=== PATIENT | male | born 1940 | race African-American/Black ===

== ENCOUNTER 2016-09-22 16:34 | Inpatient (IN) | payer OTHER ==
[~2016-09-22] VITALS: Ht 180.3 cm; Wt 88.0 kg
[~2016-09-22 16:34] MED LIST: APRESOLINE50 MG PO; ASPIRIN325 MG PO; ASPIRIN81 M1 PO; Aspirin E.C. PO; COMBIGAN O20 DROP/5 BOTH EYES; COZAAR100 MG; COZAAR100 MG PO; CRESTOR20 MG; CRESTOR20 MG PO; Combigan Ophth Soln BOTH EYES; Cozaar PO; DIAMOX SEQUELS500 MG PO; GLIPIZIDE; GLIPIZIDE10 MG; GLIPIZIDE10 MG PO; GLIPIZIDE5 MG PO; GLUCOTROL5 MG PO; HYDROCHLOROTHIA25 MG PO; JANUMET; JANUMET 50/51 TABLET; JANUMET 50/51 TABLET PO; LANTUS 10100 UNITS/ SC; LANTUS 3 M100 UNITS/ SC; LANTUS 3 M100 UNITS1 SC; LEVEMIR100 UNIT/2; LEVEMIR100 UNIT/2 SC; LEVETIRACETAM500 MG PO; LIPITOR20 MG PO; LISINOPRIL20 MG PO; LO-DOSE ASPIRIN81 M1 PO; LOSARTAN POTAS100 MG PO; LUMIGAN 0.50 DROP/2. BOTH EYES; LUMIGAN 0.50 DROP/22 BOTH EYES; Lipitor PO; Lovenox SC; Lumigan 0.01% Ophth BOTH EYES; METOPROLOL SUC100 MG PO; METOPROLOL SUCC50 MG PO; NITROGLYCERIN0.4 MG SL; NOVOLOG PE100 UNITS/ SC; PRILOSEC OTC20 MG PO; Pred Forte 1%,Omnipr LEFT EYE; Protonix PO; REGLAN10 MG/10 M PO; TOPROL XL100 MG PO; TYLENOL REGULA325 MG PO; Toprol XL PO; ZETIA10 MG PO; ZYRTEC10 M3 PO; ZyPREXA IM; ZyPREXA PO; [UNRECOGNIZED DRUG - REMARK]; [UNRECOGNIZED DRUG - REMARK]
[2016-09-22 17:06] LABS: BASOPHIL COUNT 0.1 K/uL (0-0.1); EOSINOPHIL (%) 2.4 % (0-5); EOSINOPHIL COUNT 0.2 K/uL (0-0.3); IMMATURE GRANULOCYTE (%) 0.3 % (0.0-0.7); INSTRUMENT ABS NEUTROPHIL CT 3.9 K/uL; MCH 29.5 PG (29.0-34.0); MCHC 31.9 G/DL (30.0-36.0); MCV 92.3 FL (86-99); MEAN PLAT.VOLUME 10.5 uM^3 (9.0-12.4); MONOCYTE (%) 5.9 % (3-12); MONOCYTE COUNT 0.5 K/uL (0-0.8); NEUTROPHIL (%) 50.8 % (45-76); NEUTROPHIL COUNT 3.9 K/uL (1.8-6.4); PLATELET COUNT 153 K/uL (156-360); RBC DIS.WIDTH-CV 12.8 % (11.8-14.6); RBC DIS.WIDTH-SD 43.5 % (39-53); RED BLOOD COUNT 5.09 M/uL (4.00-5.50); WHITE BLOOD COUNT 7.6 K/uL (4.1-10.2)
[2016-09-22 17:09] LABS: POINT-OF-CARE METER ID UU13113702
[2016-09-22 17:16] LABS: INTER. NORMALIZED RATIO 1.1; PROTHROMBIN TIME 11.4 (9.2-11.2)
[2016-09-22 17:29] LABS: PTT 19.7 (25-32)
[2016-09-22 17:35] LABS: AMYLASE 114 IU/L (1-118); CHLORIDE 105 mEq/L (99-109); POTASSIUM 4.5 mEq/L (3.7-5.4); SODIUM 140 mEq/L (136-147)
[2016-09-22 17:37] LABS: GLUCOSE 160 mg/dL (70-99)
[2016-09-22 17:38] LABS: ANION GAP 11 MEQ/L (2-14)
[2016-09-22 17:40] LABS: SERUM ETHYL ALCOHOL < 10 mg/dL
[2016-09-22 17:41] LABS: GFR ESTIMATE (CALCULATED) 55 mL/min/
[2016-09-22 17:42] LABS: UREA NITROGEN (BUN) 23 mg/dL (9-23)
[2016-09-22 17:44] LABS: LIPASE 32 U/L (1.0-51.0)
[2016-09-22 17:45] LABS: TROP-I INTERPRETATION NEGATIVE; TROPONIN-I < 0.01 ng/mL (0.0-0.30)
[2016-09-22] MEDS ORDERED: QUETIAPINE FUMA25 MG PO (17:46)
[2016-09-22 20:27] LABS: ADD MIUA? YES; BILIRUBIN NEGATIVE; BLOOD MODERATE; COLOR YELLOW ((YELLOW)); GLUCOSE (STRIP) NEGATIVE; KETONES NEGATIVE; LEUKOCYTES NEGATIVE; NITRITE NEGATIVE; PROTEIN (STRIP) 30; SPECIFIC GRAVITY 1.013 (1.000-1.030); UROBILINOGEN 0.2 MG/DL (0.2-1.0)
[2016-09-22 20:42] LABS: ADD MEDTOX COMMENT Y; AMPHETAMINE NEGATIVE (500 ng/mL); BARBITURATES NEGATIVE (200 ng/mL); BENZODIAZEPINES PRESUMPTIVE POSITIVE (150 ng/mL); COCAINE NEGATIVE (150 ng/mL); INTERNAL CONTROLS VALID? YES; METHADONE NEGATIVE (200 ng/mL); METHAMPHETAMINE NEGATIVE (500 ng/mL); OPIATES (MORPHINE) PRESUMPTIVE POSITIVE (100 ng/mL); OXYCODONE NEGATIVE (100 ng/mL); PHENCYCLIDINE NEGATIVE (25 ng/mL); PROPOXYPHENE NEGATIVE (300 ng/mL); THC CANNABINOIDS NEGATIVE (50 ng/mL); TRICYCLIC ANTIDEPRESSANTS NEGATIVE (300 ng/mL)
[2016-09-22 21:11] LABS: BACTERIA NONE SEEN /HPF; EPITHELIAL CELLS RARE /HPF; MUCUS NONE SEEN /LPF; RED BLOOD CELLS 40-50 /HPF (0-5); UCUL ADDED? NO; WHITE BLOOD CELLS 0-5 /HPF (0-5)
[2016-09-22 21:15] LABS: BENZODIAZEPINES QUANT VALUE 0 NG/ML; OPIATES QUANTITATIVE VALUE 0 NG/ML
[2016-09-22 21:23] LABS: BENZODIAZEPINES, URINE SCREEN Negative (200 ng/mL)
[2016-09-22] MEDS ORDERED: LO-DOSE ASPIRIN81 M2 PO (22:02)
[2016-09-23 00:55] LABS: POINT-OF-CARE METER ID UU14188625
[2016-09-23 07:41] LABS: MCH 28.8 PG (29.0-34.0); MCHC 31.7 G/DL (30.0-36.0); MCV 90.9 FL (86-99); MEAN PLAT.VOLUME 10.8 uM^3 (9.0-12.4); PLATELET COUNT 140 K/uL (156-360); RBC DIS.WIDTH-SD 43.2 % (39-53); RED BLOOD COUNT 4.51 M/uL (4.00-5.50); WHITE BLOOD COUNT 6.1 K/uL (4.1-10.2)
[2016-09-23 07:45] LABS: HDL CHOLESTEROL 37 MG/DL (Desirable>=40); LDL CHOLESTEROL 42 mg/dL (Desirable<100); NON-HDL CHOLESTEROL 55 mg/dL (Desirable<160); TOTAL CHOLESTEROL 92 mg/dL (Desirable<200); TRIGLYCERIDES 64 MG/DL (Normal: <150)
[2016-09-23 07:47] LABS: Estimated Average Glucose 146 mg/dL (70-123); HEMOGLOBIN A1c (GLYCOHEMOGLOB) 6.7 % HGB (Below 5.7)
[2016-09-23 08:00] VITALS: BP 173/80
[2016-09-23 11:27] VITALS: BP 143/67
[2016-09-23 11:58] LABS: POINT-OF-CARE METER ID UU14174225
[2016-09-23 15:17] VITALS: BP 132/65
[2016-09-23 16:23] LABS: POINT-OF-CARE METER ID UU14174225
[2016-09-23 19:48] VITALS: BP 116/56
[2016-09-23 21:36] LABS: POINT-OF-CARE METER ID UU14174225
[2016-09-24] VITALS: BP 140/60
[2016-09-24 03:21] VITALS: BP 133/70
[2016-09-24 07:25] VITALS: BP 187/88
[2016-09-24 10:29] VITALS: BP 165/81
[2016-09-24 16:00] VITALS: BP 181/84
[2016-09-24 20:22] VITALS: BP 164/80
[2016-09-25] VITALS: BP 147/80
[2016-09-25 03:50] VITALS: BP 193/95
[2016-09-25 05:50] VITALS: BP 143/72
[2016-09-25 07:14] VITALS: BP 144/72
[2016-09-25 10:34] VITALS: BP 140/60
[2016-09-25 12:08] VITALS: BP 131/78
[2016-09-25] MEDS ORDERED: LEVETIRACETAM750 MG PO (14:06)
== END 2016-09-25 14:55 | disposition home health service (06) | DRG 101 ==
LOC: EME → EDBD 16:34 → EME 16:34 → EDOF 22:48 → 5SOUTH 22:48
PROVIDERS: Emergency Medicine; Family Medicine; Internal Medicine
DX: G40.409 Other generalized epilepsy and epileptic syndromes, not intractable, without status epilepticus (principal); F05 Delirium due to known physiological condition; R44.0 Auditory hallucinations; F33.9 Major depressive disorder, recurrent, unspecified; F01.51 Vascular dementia, unspecified severity, with behavioral disturbance; I10 Essential (primary) hypertension; E11.65 Type 2 diabetes mellitus with hyperglycemia; G93.89 Other specified disorders of brain; R44.1 Visual hallucinations; H54.0 Blindness, both eyes; H40.9 Unspecified glaucoma; I25.10 Atherosclerotic heart disease of native coronary artery without angina pectoris; I78.8 Other diseases of capillaries; E78.5 Hyperlipidemia, unspecified; Z91.041 Radiographic dye allergy status; Z98.61 Coronary angioplasty status; Z87.891 Personal history of nicotine dependence; Z86.73 Personal history of transient ischemic attack (TIA), and cerebral infarction without residual deficits; Z88.2 Allergy status to sulfonamides; Z79.82 Long term (current) use of aspirin; Z79.4 Long term (current) use of insulin; Z82.0 Family history of epilepsy and other diseases of the nervous system; Z82.49 Family history of ischemic heart disease and other diseases of the circulatory system
CPT/HCPCS: 70450; 70544; 70549; 70551; 80048; 80061; 81003; 82150; 82948; 83036; 83690; 84484; 84999; 85025; 85027; 85610; 85730; 86850; 86900; 86901; 92523 GN; 92610 GN; 93005; 95819; G0480; J1815; J1953; J2060; J7030; J7050